=== PATIENT | male | born 1960 | race Two or more races ===

== ENCOUNTER 2024-01-25 22:46 | Emergency (ER) | payer OTHER ==
[~2024-01-25] VITALS: Ht 185.4 cm; Wt 99.8 kg
[2024-01-25 23:12] VITALS: BP 145/76; TEMP 98.1; O2SAT 98
== END 2024-01-25 23:17 ==
LOC: ER 22:48
DX: Z02.89 Encounter for other administrative examinations (principal); I10 Essential (primary) hypertension; I25.2 Old myocardial infarction